=== PATIENT | male | born 1960 | race African-American/Black ===

== ENCOUNTER → 2024-08-07 | Day surgery (SDC) | payer OTHER ==
[2024-08-04 13:40] LABS: BASOPHILS % 0.5 % (0.0-1.0); EOSINOPHILS # (AUTO) 0.1 (0.0-0.4); EOSINOPHILS % 1.4 % (0.0-6.0); HEMATOCRIT 47.9 % (38.2-49.6); HEMOGLOBIN 15.8 g/dL (14.0-18.0); LYMPHOCYTES % 45.7 % (18.0-39.1); MEAN CORPUSCULAR HEMOGLOBIN 31.2 pg (28-32); MEAN CORPUSCULAR VOLUME 94.5 fL (81-99); MONOCYTES # (AUTO) 0.5 (0.2-0.8); MONOCYTES % 12.2 % (4.4-11.3); NEUTROPHILS # (AUTO) 1.7 (2.1-6.9); PLATELET COUNT 118 x10e3/uL (140-360); RED BLOOD COUNT 5.07 x10e6/uL (4.3-5.7); RED CELL DISTRIBUTION WIDTH 13.3 % (11.7-14.4); WHITE BLOOD COUNT 4.27 x10e3/uL (4.8-10.8)
[2024-08-04 14:12] LABS: ALBUMIN/GLOBULIN RATIO 1.2 (0.8-2.0); ANION GAP 13.1 mmol/L (8-16); BILIRUBIN,TOTAL 0.6 mg/dL (0.2-1.2); CALCIUM 9.6 mg/dL (8.4-10.2); CREATININE, SERUM 1.33 mg/dL (0.72-1.25); POTASSIUM 4.1 mmol/L (3.5-5.1); TOTAL PROTEIN 7.4 g/dL (6.5-8.1)
[~2024-08-07] MED LIST: ACETAMINOPHEN 1000 MG/100 ML 100 ML IV ONE; DEXAMETHASONE SOD PHOS INJ 4 MG/ML SDV ONE; EPHEDRINE SULFATE INJ 50 MG/ML VIAL ONE; FENTANYL CITRATE/PF 100MCG/2 ML INJ ONE; HYDROCODON-ACE1 EAC9 PO; HYDROCODONE/APAP 7.5MG-325MG 1 EA TAB ONE; LIDOCAINE HCL 2% LOCAL INJ 5 ML SDV VIAL INJ ONE; MULTI-VITAMIN1 EACH PO; ONDANSETRON HCL INJ 2MG/ML 2ML 2 MG/ML VIAL ONE; PROPOFOL IV EMULSION 10 MG/ML 20 ML VIAL ONE; SEMAGLUTIDE SC; SEVOFLURANE INHAL SOLN 250 ML PEN BTL ONE; VASOPRESSIN INJ 20 UNIT/ML VIAL ONE
[2024-08-07] MEDS: LACTATED RINGER'S 1,000 ML ONE (06:50)
[2024-08-07] MEDS: CEFAZOLIN SODIUM 2 GM ONE (06:50)
[2024-08-07 10:13] VITALS: TEMP 97.4
[2024-08-07] MEDS: HYDROCODONE/APAP 7.5MG-325MG 1 EA TAB PO ONE (11:10)
[2024-08-07 11:20] VITALS: BP 136/86; PULSE 80; RESP 18; O2SAT 99
== END | disposition home or self-care (01) ==
LOC: OR 06:27
PROVIDERS: ATTEND Orthopaedic Surgery
DX: M87.851 Other osteonecrosis, right femur (principal); M87.061 Idiopathic aseptic necrosis of right tibia; S83.241A Other tear of medial meniscus, current injury, right knee, initial encounter; S83.281A Other tear of lateral meniscus, current injury, right knee, initial encounter; M22.41 Chondromalacia patellae, right knee; M67.51 Plica syndrome, right knee; E66.01 Morbid (severe) obesity due to excess calories; Z88.2 Allergy status to sulfonamides; X58.XXXA Exposure to other specified factors, initial encounter; Z01.810 Encounter for preprocedural cardiovascular examination; Z01.812 Encounter for preprocedural laboratory examination; Z79.85 Long-term (current) use of injectable non-insulin antidiabetic drugs
CPT/HCPCS: 27599; 29880; 36415; 38232; 80053; 85025; 93005 ×2; C1713; J0131; J1100; J2003; J2405; J2704; J3010; J7121; 76000

== ENCOUNTER → 2024-10-16 | Day surgery (SDC) | payer OTHER ==
[2024-10-09 11:27] LABS: BASOPHILS % 0.2 % (0.0-1.0); EOSINOPHILS # (AUTO) 0.1 (0.0-0.4); EOSINOPHILS % 2.4 % (0.0-6.0); HEMATOCRIT 45.6 % (38.2-49.6); HEMOGLOBIN 15.9 g/dL (14.0-18.0); LYMPHOCYTES # (AUTO) 1.5 (1.0-3.2); LYMPHOCYTES % 34.8 % (18.0-39.1); MEAN CORPUSCULAR HEMOGLOBIN 30.7 pg (28-32); MEAN CORPUSCULAR HGB CONC 34.9 g/dL (31-35); MONOCYTES # (AUTO) 0.4 (0.2-0.8); MONOCYTES % 10.4 % (4.4-11.3); NEUTROPHILS # (AUTO) 2.2 (2.1-6.9); NEUTROPHILS % 52.2 % (38.7-80.0); PLATELET COUNT 156 x10e3/uL (140-360); RED BLOOD COUNT 5.18 x10e6/uL (4.3-5.7); RED CELL DISTRIBUTION WIDTH 13.1 % (11.7-14.4); WHITE BLOOD COUNT 4.22 x10e3/uL (4.8-10.8)
[2024-10-09 11:49] LABS: ALBUMIN 4.2 g/dL (3.5-5.0); ALBUMIN/GLOBULIN RATIO 1.2 (0.8-2.0); ANION GAP 13.9 mmol/L (8-16); BILIRUBIN,TOTAL 0.5 mg/dL (0.2-1.2); CALCIUM 9.8 mg/dL (8.4-10.2); CREATININE, SERUM 1.07 mg/dL (0.72-1.25); POTASSIUM 3.9 mmol/L (3.5-5.1); TOTAL PROTEIN 7.7 g/dL (6.5-8.1)
[~2024-10-16] MED LIST changes: -EPHEDRINE SULFATE INJ 50 MG/ML VIAL ONE; +HYDROCODONE/APAP 10MG-325MG TAB ONE; -HYDROCODONE/APAP 7.5MG-325MG 1 EA TAB ONE; -VASOPRESSIN INJ 20 UNIT/ML VIAL ONE
[2024-10-16] MEDS: CEFAZOLIN SODIUM 2 GM ONE (08:11)
[2024-10-16] MEDS: LACTATED RINGER'S 1,000 ML ONE (08:12)
[2024-10-16] MEDS: FENTANYL CITRATE/PF 100MCG/2 ML INJ ONE (12:45)
[2024-10-16 13:10] VITALS: TEMP 97.8
[2024-10-16 14:00] VITALS: BP 169/94; PULSE 78; RESP 16; O2SAT 98
== END | disposition home or self-care (01) ==
LOC: OR 07:40
PROVIDERS: ATTEND Orthopaedic Surgery
DX: M87.852 Other osteonecrosis, left femur (principal); M87.062 Idiopathic aseptic necrosis of left tibia; S83.242A Other tear of medial meniscus, current injury, left knee, initial encounter; S83.282A Other tear of lateral meniscus, current injury, left knee, initial encounter; M22.42 Chondromalacia patellae, left knee; M67.52 Plica syndrome, left knee; E66.01 Morbid (severe) obesity due to excess calories; G89.29 Other chronic pain; X58.XXXA Exposure to other specified factors, initial encounter; Z88.2 Allergy status to sulfonamides; Z01.812 Encounter for preprocedural laboratory examination; Z01.818 Encounter for other preprocedural examination
CPT/HCPCS: 27599; 29880; 36415; 38232; 71046; 80053; 85025; C1713; J0131; J1100; J2003; J2405; J2704; J3010; J7121; 76000